=== PATIENT | male | born 1940 | race Caucasian/White ===

== ENCOUNTER → 2016-10-20 | Outpatient (CLI) | payer MEDICARE, OTHER ==
[~2016-10-20] MED LIST: ALBU8HFA4 IH; ASPI-556 PO; FERS325 PO; FINA5TAB41 PO; METO-327 PO; PRAV40 PO; SUCR1TAB PO; TIOT185 IH; VITA-328 PO; VITAD1000 PO
== END | disposition home or self-care (01) ==
LOC: RADPV 15:05
PROVIDERS: ATTEND Family Medicine
DX: M19.012 Primary osteoarthritis, left shoulder (principal); M19.011 Primary osteoarthritis, right shoulder